=== PATIENT | female | born 1955 | race Caucasian/White ===

== ENCOUNTER 2020-09-18 08:28 | Outpatient (CLI) | payer MEDICARE, SELFPAY ==
[2020-09-18 09:22] LABS: Cholesterol 179 mg/dL (0-200); HDL Direct 59 mg/dL; Triglycerides 127 mg/dL (<150)
[2020-09-18 09:33] LABS: LDL Cholesterol Direct 89 mg/dL
[2020-09-18 09:50] LABS: Free T4 Free Thyroxine 0.94 ng/mL (0.78-2.19)
[2020-09-23 07:45] LABS: Vitamin D 1,25 (OH)2 Total 45 pg/mL (18-72); Vitamin D2 1,25 (OH)2 18 pg/mL; Vitamin D3 1,25 (OH)2 27 pg/mL
== END 2020-09-18 08:29 | disposition home or self-care (01) ==
PROVIDERS: Visit Provider Obstetrics & Gynecology Gynecology
DX: Z13.220 Encounter for screening for lipoid disorders (principal); E55.9 Vitamin D deficiency, unspecified; E03.9 Hypothyroidism, unspecified
CPT/HCPCS: 36415; 80061; 82652; 84439; 84443

== ENCOUNTER → 2022-03-15 10:48 | Outpatient (CLI) | payer MEDICARE, SELFPAY ==
--- NOTE | ~2022-03-15 | MM_ITS ---
EXAMINATION: MM screening matteo BI w rip HISTORY: Screening mammogram TECHNIQUE: Craniocaudal and mediolateral oblique 3-D tomosynthesis images were obtained and synthetic 2-D images were generated. CAD analysis was submitted and interpreted. COMPARISON: No prior mammogram is available for comparison at this institution. BREAST PARENCHYMAL COMPOSITION: The breasts are heterogeneously dense, which may obscure small masses . FINDINGS: There is no evidence of suspicious mass, calcification, or architectural distortion to sugg est malignancy in either breast. There has been no suspicious interval change. IMPRESSION: 1. No mammographic evidence of malignancy. 2. Recommend routine screening mammography in one year. BI-RADS Category 1: Negative Reviewed, dictated and finalized at location A.
--- NOTE | ~2022-03-15 | DEXA_ITS ---
Bone Density Report Name: RUTHIE GOEL Age: 66 Sex: Female Ethnicity: White Date of : 1955 Indication: postmenopausal; screening for osteoporosis; prior fracture; hysterectomy; Referring Provider: Raudel, Lisbeth Study: Bone densitometry was performed. Exam Date: March 15, 2022 Accession number: [id number] Bone Density: Region BMD T-score Z-score Classification AP Spine (L1-L4) 1.069 0.2 2.1 Normal Femoral Neck (Left) 0.690 -1.4 0.2 Osteopenia Total Hip (Left) 0.849 -0.8 0.6 Normal Femoral Neck (Right) 0.796 -0.5 1.2 Normal Total Hip (Right) 0.844 -0.8 0.5 Normal Total Hip Mean 0.847 -0.8 0.6 Normal World Health Organization criteria for BMD impression classify patients as: Normal (T-score at or above -1.0), Osteopenia (T-score between -1.0 and -2.5), or Osteoporosis (T-score at or below -2.5). 10-year Fracture Risk(1): Major Osteoporotic Fracture 15% Hip Fracture 1.6% Reported Risk Factors: [place] (), Neck BMD=0.690, BMI=27.5, previous fracture (1) FRAX(R) Version 3.08. Fracture probability calculated for an untreated patient. Fracture probability may be lower if the patient has received treatment. Previous Exams: Region Exam Age BMD T-score BMD Change BMD Change Date g/cm2 vs Baseline vs Previous AP Spine(L1-L4) 03/15/2022 66 1.069 0.2 0.016 0.016 07/31/2017 61 1.053 0.1 Total Hip(Left) 03/15/2022 66 0.849 -0.8 -0.009 -0.009 07/31/2017 61 0.858 -0.7 Total Hip(Right) 03/15/2022 66 0.844 -0.8 -0.006 -0.006 07/31/2017 61 0.850 -0.8 *Denotes significance at 95% confidence level, LSC for AP Spine = 0.022 g/cm2, LSC for Total Hip = 0.027 g/cm2 Clinical Information Provided by Patient: Has had a low trauma fracture Has used the following medications: Vitamin D, MTV, LEVOTHYROXINE Has the following medical conditions: Hysterectomy Patient maximum height was 66.5 Menopause Age: 41 No regular weight bearing exercise Onset of menses at age 11 Number of children 0 Impression: The patient has low bone mass, based on the Left Femoral Neck T-score. The patient has an estimated ten-year risk of hip fracture of 1.6% and an estimated ten-year risk of major fracture of 15%, based on the WHO FRAX algorithm. The patient has risk factors, including: previous fracture. No significant bone loss was observed. Discussion: BONE DENSITY IS LOW AT
== END ==
PROVIDERS: PCP Family Medicine; Visit Provider Nurse Practitioner
DX: Z12.31 Encounter for screening mammogram for malignant neoplasm of breast (principal); Z78.0 Asymptomatic menopausal state; M85.89 Other specified disorders of bone density and structure, multiple sites
CPT/HCPCS: 77063; 77067; 77080